=== PATIENT | female | born 1945 | race Hispanic/Latino ===

== ENCOUNTER → 2020-05-17 | Outpatient (CLI) | payer MEDICARE, MEDICAID ==
--- NOTE | 2020-05-18 11:20 | RAD ---
EXAM: Wrist,Left 3 Views INDICATION: 74 years Female, PAIN IN LEFT WRIST COMPARISON: None available FINDINGS: 3 views of the left wrist were performed. Note is made that the examination is a limited due to overlying splint/casting material. Probable subacute nondisplaced fracture of the distal radius with suspected callus formation seen dorsally on the lateral view. Scattered degenerative changes are noted in the wrist and hand. No destructive osseous lesion is identified on this limited study. IMPRESSION: Examination is limited due to overlying casting material. There appears to be callus formation, which is best seen on the lateral view dorsally at the distal left radius, presumably nondisplaced subacute fracture of the radius. Comparison with prior imaging would be helpful. Electronically signed by: Ruthie Aguilar MD 05/18/2020 11:18 AM [facility]
== END ==
LOC: RAD 08:57
PROVIDERS: ATTEND Orthopaedic Surgery
DX: M25.532 Pain in left wrist (principal); M89.9 Disorder of bone, unspecified

== ENCOUNTER → 2020-06-10 | Outpatient (CLI) | payer MEDICARE, MEDICAID ==
--- NOTE | 2020-06-10 11:47 | RAD ---
EXAM DESCRIPTION: Wrist,Left 3 Views CLINICAL HISTORY: 74 years, Female, CLOSED FRACTURE OF DISTAL END OF LEFT RADIUS COMPARISON: May 17, 2020 FINDINGS: X-ray three-view left wrist. Healing intra-articular fracture of the distal radius well aligned. IMPRESSION: 1. Healing fracture-no complication Electronically signed by: Shane Lechuga MD 06/10/2020 11:45 AM [facility]
== END ==
LOC: RAD 08:49
PROVIDERS: ATTEND Orthopaedic Surgery
DX: S52.502D Unspecified fracture of the lower end of left radius, subsequent encounter for closed fracture with routine healing (principal)

== ENCOUNTER → 2020-07-04 | Outpatient (CLI) | payer MEDICARE, MEDICAID ==
--- NOTE | 2020-07-04 17:20 | RAD ---
EXAM DESCRIPTION: Wrist,Left 3 Views CLINICAL HISTORY: 74 years, Female, fracture of distal end of radius COMPARISON: Previous left wrist x-ray series June 10, 2020 FINDINGS: Left wrist 3 x-ray views is positive for sclerosis across the metaphysis of the distal left radius consistent with a healing fracture with callus formation. Carpal relationships are well-maintained. Distal ulna appears intact. Normal metacarpals. IMPRESSION: Healing fracture of the distal left radius. Electronically signed by: Beau Kelly MD 07/04/2020 5:18 PM [facility]
== END ==
LOC: RAD 09:53
PROVIDERS: ATTEND Orthopaedic Surgery
DX: S52.502D Unspecified fracture of the lower end of left radius, subsequent encounter for closed fracture with routine healing (principal)